=== PATIENT | male | born 1995 | race Caucasian/White ===

== ENCOUNTER 2021-08-09 16:41 | Emergency (ER) | payer SELFPAY ==
[~2021-08-09] VITALS: Ht 182.9 cm; Wt 81.6 kg
--- NOTE | 2021-08-09 17:40 | NUR ---
PT BIBSELF C/O LEFT FOOT/HEEL PAIN FROM PLAYING BASKETBALL. NO SWELLING OR OPEN SKIN NOTED AT THIS TIME. PT AMBULATORY WITH STEADY GAIT
--- NOTE | 2021-08-09 17:40 | NUR ---
Ro lopez in ED - 08/09/21 at 1854 by SARAH PT BIB RA 82 FROM HOME,WORSENING SOB X 3 WEEKS
[2021-08-09] MEDS ORDERED: HYDROCODONE/APAP 5/325MG TABLET PO ONE (18:00)
[2021-08-09] MEDS ORDERED: HYDROCODONE/APAP 5/325MG TABLET ONE (18:04)
--- NOTE | 2021-08-09 20:45 | NUR ---
Patient discharged to home in stable condition. Written and verbal after care instructions given. Patient verbalizes understanding of instruction. PT ambulatory with a steady gait WITH WOUND CARE.
[2021-08-10 00:20] VITALS: BP 144/73
== END 2021-08-09 21:45 | disposition home or self-care (01) ==
LOC: ER 16:44
DX: S86.012A Strain of left Achilles tendon, initial encounter (principal); W18.39XA Other fall on same level, initial encounter; Y93.67 Activity, basketball; Y92.310 Basketball court as the place of occurrence of the external cause; Y99.8 Other external cause status
CPT/HCPCS: 73610-TC